=== PATIENT | male | born 1950 | race Caucasian/White ===

== ENCOUNTER → 2018-06-09 | Day surgery (SDC) | payer OTHER ==
[~2018-06-09] MED LIST: BUDE9TAB PO; CRESTOR20 MG PO; DOXY100T9 PO; INSU100I30 SQ; INSU100V13 SQ; LIDOCAINE 2% PF Vial for OR 5 ML VIAL. ONE; MESA1.2T PO; METR500T PO; PROPOFOL 40 ML IV ONE; VANC250C2 PO
[2018-06-09] MEDS: IV RINGERS,LACTATED 1000ML 1,000 ML IV SCH (09:04)
[2018-06-09 10:14] VITALS: BP 118/78
--- NOTE | 2018-06-12 14:12 | PATHOLOGY ---
[facility] Accession Number: [id number] . 01 Material submitted: . PART A: RIGHT COLON BIOPSIES PART B: TRANSVERSE COLON PART C: LEFT COLON . 01 Clinical history: . Ulcerative colitis . 02 Diagnosis: A. Colonic mucosa, right colon biopsies: - Active chronic colitis with acute cryptitis and crypt abscesses. . B. Colonic mucosa, transverse colon biopsies: - Active chronic colitis with acute cryptitis and crypt abscesses. . C. Colonic mucosa, left colon biopsies: - Active chronic colitis with focal acute cryptitis and crypt abscesses. (JPM:amee; 06/12/2018) QMS/06/12/2018 . 02 Comment: Sections of the right colon, transverse colon, and left colon biopsies appear similar and show an active chronic colitis with acute cryptitis and crypt abscesses. There are no granulomas. The findings are consistent with active chronic ulcerative colitis. The inflammation is less intense and more focal in the left colon biopsies. There is no dysplasia or evidence of malignancy. (JPM:amee; 06/12/2018) . 02 Electronically signed: . Benedict Fernandez MD, Pathologist NPI- [id number] . 01 Gross description: . A. The specimen is received in formalin, labeled "Geater, Chicho and right colon", are multiple irregular fragments of [place] soft tissue measuring 1.0 x 0.6 x 0.2 cm in aggregate. The specimen is entirely submitted in A1. . B. The specimen is received in formalin, labeled "Geater, Chicho and transverse colon", are multiple irregular fragments of [place] soft tissues measuring 1.0 x 0.4 x 0.1 cm in aggregate. The specimen is entirely submitted in B1. . C. The specimen is received in formalin, labeled "Geater, Chicho and left colon, are multiple irregular fragments of [place] soft tissue measuring 1.0 x 0.5 x 0.1 cm in aggregate. Specimen is entirely submitted in C1. ([facility]; 06/09/2018) SHS/SHS . 02 Pathologist provided ICD-10: K52.9, K63.0 . 02 CPT . 457297, [id number], [id number] Performed at: [address], [place], [place] [id number] MD Gilbert Torres MD Phone: [phone] Performed at: 02 [facility] [address] [place], [place] [id number] MD Benedict Fernandez MD Phone: [phone]
== END | disposition home or self-care (01) ==
LOC: SURG 08:24
PROVIDERS: ATTEND Internal Medicine Gastroenterology
DX: K63.3 Ulcer of intestine (principal); K64.0 First degree hemorrhoids; K52.9 Noninfective gastroenteritis and colitis, unspecified; K62.89 Other specified diseases of anus and rectum; E11.9 Type 2 diabetes mellitus without complications; E78.00 Pure hypercholesterolemia, unspecified; Z83.3 Family history of diabetes mellitus; Z83.79 Family history of other diseases of the digestive system; Z72.89 Other problems related to lifestyle; Z87.891 Personal history of nicotine dependence; Z79.899 Other long term (current) drug therapy; Z79.4 Long term (current) use of insulin
CPT/HCPCS: 45380; 88305; J2001; J2704; 45385